=== PATIENT | male | born 1965 | race Caucasian/White ===

== ENCOUNTER 2022-03-08 14:20 | Outpatient (CLI) | payer OTHER, SELFPAY ==
--- NOTE | ~2022-03-08 | XR_ITS ---
EXAMINATION: XR lumbar spine min 4V DATE: 03/08/2022 14:48 INDICATION: Back pain. TECHNIQUE: 4 views of lumbar spine including flexion and extension views were obtained. COMPARISON: None. FINDINGS: There is 8 degrees dextrocurvature of lumbar spine. The spine is hypomobile with flexion an d extension. Vertebral body heights are normal. There is mildly decreased disc height at L2-L3, L3-L4 , and L4-L5. There are endplate osteophytes at most levels. 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 IMPRESSION: 1. Mild lumbar spondylosis. Reviewed, dictated and finalized at location A. IMPRESSION: 1. Mild lumbar spondylosis.
== END 2022-03-08 14:21 | disposition home or self-care (01) ==
PROVIDERS: PCP Nurse Practitioner Family; Visit Provider Neurological Surgery
DX: M47.896 Other spondylosis, lumbar region (principal)
CPT/HCPCS: 72110

== ENCOUNTER 2023-10-02 00:12 | Day surgery (SDC) | payer OTHER, SELFPAY ==
[2023-09-16 13:39] VITALS: BMI 26.6
[2023-10-02 07:47] VITALS: BP 121/72; PULSE 72; RESP 16; TEMP 36.3; O2SAT 98
[2023-10-02] MEDS: LACTATED RINGERS 1,000 ML 150 ML IV CONT (07:50)
--- NOTE | 2023-10-02 07:50 | WPDANESEPPF ---
Anes - Initial Pre Proc Eval Procedure: Operation Date: 10/02/23 08:30 Proposed Procedures p Screening Colonoscopy - Ze Cabrera DO Date/Time: 10/02/23 07:50 Surgeon: Ze Cabrera DO Pre Op Diagnosis: neoplasm screening Patient Data Age: 58 Gender: M Height: 1.75 m Weight: 81.7 kg Last Vital Signs Temp 97.4 F L 10/02/23 07:47 Pulse 72 10/02/23 07:47 Resp 16 10/02/23 07:47 BP 121/72 10/02/23 07:47 Pulse Ox 98 10/02/23 07:47 O2 Del Method Room Air 10/02/23 07:47 Allergies Allergy/AdvReac Type Severity Reaction Status Date / Time No Known Allergies Allergy Verified 10/02/23 07:44 Home Medications Medication Instructions Recorded Confirmed Type No Home Medications 09/16/23 09/16/23 History Patient hx anesthesia problems: none Family hx anesthesia problems: pseudocholinesterase deficiency Results Review: All pre-operative results and documents have been reviewed as part of the pre-operative evaluation. [facility] Past Medical History Medical History Disc herniation Surgical History Surgical History (Updated 08/19/23 @ 15:47 by Nadeen Watkins PA-C) No pertinent past surgical history Family History Family History Father Diabetes mellitus Hypertension Heart disease Sibling Diabetes mellitus Depression Thyroid disorder Grandparent Heart disease Social History Social History Years smoked: 35 Smoking status: Former smoker Tobacco type: cigarettes and e-cigarettes/vaping Smoking end date: 07/08/23 Alcohol intake: current Drinks per week: 20 Substance use: never Substance use type: does not use Living arrangements: alone Occupation/Education: occupation 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/education 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 Informed Consent: The patient's anesthetic plan and its attendant risks and benefits were discussed with the patient/family/POA. Questions were solicited and answers provided to the satisfaction of the patient/family/POA.
--- NOTE | 2023-10-02 07:55 | PM.IMHP ---
H&P: HPI History of Present Illness Date/Time: 10/02/23 07:55 Chief Complaint: Screening for colorectal cancer Narrative: this is a 58 year old man who presents for colonoscopy. he has never had a colonoscopy before. He denies any hematochezia or melena. He denies any change in his bowel habits. There is no family history of colon cancer. Review of Systems Review of Systems: All systems reviewed & are unremarkable except as noted in HPI and below Constitutional: Constitutional: Denies chills, Denies fever(s), Denies headache(s) and Denies weight loss Eyes: Eyes: Denies change in vision ENT: Denies dizziness, Denies headache(s), Denies neck mass and Denies throat swelling Cardiovascular: Cardiovascular: Denies chest pain, Denies lightheadedness and Denies dyspnea Respiratory: Respiratory: Denies cough, Denies dyspnea and Denies wheezing Gastrointestinal: Gastrointestinal: Denies abdominal pain, Denies change in bowel habits, Denies nausea and Denies vomiting Genitourinary: Genitourinary: Denies hematuria and Denies dysuria Musculoskeletal: Musculoskeletal: Reports as per HPI Integumentary/Breasts: Skin/Breast: Reports as per HPI Neurologic: Denies dizziness and Denies headache(s) Allergic/Immunologic: Allergic/Immunologic: Denies throat swelling and Denies wheezing PMF Past Medical History Medical History (Updated 10/02/23 @ 08:01 by Ze Cabrera DO) Disc herniation Surgical History Surgical History (Updated 08/19/23 @ 15:47 by Nadeen Watkins PA-C) No pertinent past surgical history Family History Family History Father Diabetes mellitus Hypertension Heart disease Sibling Diabetes mellitus Depression Thyroid disorder Grandparent Heart disease Social History Social History Years smoked: 35 Smoking status: Former smoker Tobacco type: cigarettes and e-cigarettes/vaping Smoking end date: 07/08/23 Alcohol intake: current Drinks per week: 20 Substance use: never Substance use type: does not use Living arrangements: alone Occupation/Education: occupation 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/education 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 Gender identity (if verbalized by the patient): Male Spiritual care concerns: No Agree to blood products: No Meds Home Medications and Allergies Home Medications Medication Instructions Recorded Confirmed Type No Home Medications 09/16/23 09/16/23 History Allergies Allergy/AdvReac Type Severity Reaction Status Date / Time No Known Allergies Allergy Verified 10/02/23 07:44 Vital Signs Vital Signs - 24 hr 10/02/23 07:47 Temperature 36.3 C L Pulse Rate 72 Respiratory Rate 16 Blood Pressure 121/72 Pulse Oximetry 98 Oxygen Delivery Room Air Exam Const: General: no acute distress and alert Orientation/consciousness: patient oriented x3 HENMT: Head: normocephalic and atraumatic Ears: hearing grossly normal bilaterally Face/Nose/Sinus: Normal nares present Mouth: Yes Normal oral and palatal mucosa present Eyes: Periorbital: periorbital findings normal Sclera: sclerae normal EOM: EOMs intact bilaterally Neck: Neck: normal visual inspection, no lymphadenopathy and trachea midline Chest: Chest palpation & inspection: normal inspection of the chest Resp: Effort & Inspection: normal respiratory effort Auscultation: clear to auscultation bilaterally Cardio: Jugular venous distension: no JVD Rate: regular rate Rhythm: regular rhythm Heart sounds: S1 normal heart sound present and S2 normal heart sound present Peripheral pulses: Peripheral pulses 2+ throughout GI: Inspection: normal to inspection GI Palp: Yes Soft to palpation, No Tenderness to palpation present (GI), No Guarding due to palpation present (GI) and No Rebound tenderness present Percussion: Yes normal t
[2023-10-02 08:27] VITALS: BP 93/61; PULSE 67; RESP 20; O2SAT 97
[2023-10-02 08:37] VITALS: BP 116/68; PULSE 65; RESP 19; O2SAT 97
[2023-10-02 08:51] VITALS: BP 121/70; PULSE 60; RESP 15; O2SAT 99
== END 2023-10-02 08:54 | disposition home or self-care (01) ==
PROVIDERS: PCP Physician Assistant Medical; Visit Provider Surgery
PROC: 0DJD8ZZ Inspection of Lower Intestinal Tract, Via Natural or Artificial Opening Endoscopic (ICD-10-PCS; CPT 45378; principal; 2023-10-02 08:30)
DX: Z12.11 Encounter for screening for malignant neoplasm of colon (principal); K63.5 Polyp of colon; K57.30 Diverticulosis of large intestine without perforation or abscess without bleeding; Z87.891 Personal history of nicotine dependence; Z82.49 Family history of ischemic heart disease and other diseases of the circulatory system
CPT/HCPCS: 45380; 88305; J2001; J2704; J7120